=== PATIENT | female | born 1940 | race Caucasian/White ===

== ENCOUNTER 2017-10-10 09:48 | Outpatient (CLI) | payer OTHER ==
[~2017-10-10 09:48] MED LIST: ACETAMINOPHEN NG; ASPI-611 NG; FURO20TA4 PO; HYDROCODONE NG; MAGONATE; MULT1TAB74 NG; MYLICON NG; NITR100C6 PO; PREG150C PO; TEMA7.5C NG; VANCOMYCIN NG; XAL0.005OS OP; [UNRECOGNIZED DRUG - OTHER] NG
[2017-10-10] MEDS ORDERED: iohexol 300mg/ml 100ml inj. ONE (10:18)
== END 2017-10-10 23:59 | disposition home or self-care (01) ==
LOC: 64 CT 09:48
PROVIDERS: ATTEND Thoracic Surgery (Cardiothoracic Vascular Surgery)
DX: I51.7 Cardiomegaly (principal); N63.0 Unspecified lump in unspecified breast; I10 Essential (primary) hypertension; F17.200 Nicotine dependence, unspecified, uncomplicated; Z98.890 Other specified postprocedural states
CPT/HCPCS: 71260; Q9967

== ENCOUNTER 2017-10-13 13:56 | Outpatient (CLI) | payer OTHER | END 2017-10-13 23:59 | disposition home or self-care (01) | LOC: CARD DIAG 13:56 | PROVIDERS: ATTEND Thoracic Surgery (Cardiothoracic Vascular Surgery) | DX: I08.3 Combined rheumatic disorders of mitral, aortic and tricuspid valves (principal); I10 Essential (primary) hypertension; F17.200 Nicotine dependence, unspecified, uncomplicated | CPT/HCPCS: 93306 ==